=== PATIENT | male | born 1950 | race Caucasian/White ===

== ENCOUNTER 2018-04-26 22:14 | Inpatient (IN) ==
[2018-04-26 23:34] LABS: BASO# 0.02 X1000 (0.0-0.2); BASO% 0.2 % (0.0-0.8); EOS# 0.02 X1000 (0.0-0.7); EOS% 0.2 % (0.0-10.0); HEMATOCRIT 39.9 % (42.0-52.0); HEMOGLOBIN 12.6 g/dL (14.0-18.0); LYMPH# 1.14 X1000 (1.2-3.4); LYMPH% 10.7 % (20.5-51.1); MCH 32.4 PG (27-31); MCHC 31.6 g/dL (33-37); MCV 102.6 FL (81-99); MONO# 0.38 X1000 (0.11-0.59); MONO% 3.6 % (1.7-9.3); MPV 10.5 FL (7.4-10.4); NEUT# 9.11 X1000 (1.4-6.5); NEUT% 85.3 % (42.2-75.2); PLT 178 X1000 (130-400); RBC 3.89 XMIL (4.7-6.1); RDW 12.6 % (11.5-14.5); WBC 10.67 X1000 (4.8-10.8)
[2018-04-26] MEDS ORDERED: NS 1,000 ML IV ONE (23:37)
[2018-04-26 23:43] LABS: AGAP 10; ALB/GLOB RATIO 2.2; ALBUMIN 4.1 g/dL (3.5-5.0); ALKALINE PHOSPHATASE 70 U/L (32-122); BUN 37 mg/dL (8-22); CALCIUM 8.8 mg/dL (8.8-10.2); CHLORIDE 105 mmol/L (98-107); COSMO 289; CREATININE 0.8 mg/dL (0.7-1.2); ESTIMATED GFR > 60; GLUCOSE 146 mg/dL (70-104); GOT 17 U/L (10-34); GPT 17 U/L (10-44); POTASSIUM 4.6 mmol/L (3.5-5.1); SODIUM 139 mmol/L (136-145); TCO2 24 mmol/L (25-35)
[2018-04-26] MEDS ORDERED: PROTONIX IV ONE (23:45)
[2018-04-26] MEDS ORDERED: SODIUM CHLORIDE 0.9% INJ ONE (23:45)
--- NOTE | 2018-04-26 23:52 | PROVIDER DOCUMENTATION ---
This chart was entered by Pavel Carballo Scribe, acting as scribe for Geovany Ye MD. HPI-Abdominal Pain/GI Problem - General Chief Complaint: GI Bleed Stated Complaint: BROKE OUT IN COLD SWEAT 2 HRS AGO Time Seen by Provider: 04/26/18 22:40 Source: patient Allergies/Adverse Reactions: Patient Allergies Allergy/AdvReac Type Severity Reaction Status Date / Time metronidazole [From Flagyl] AdvReac RASH Verified 01/18/17 03:58 Home Medications: Home Medication List Medication Instructions Recorded Confirmed Last Taken Type Aspirin [Aspir-Low] 81 mg PO DAILY 01/18/17 01/18/17 01/17/17 08:00 History Hydrochlorothiazide 12.5 mg PO DAILY 01/18/17 01/18/17 01/17/17 08:00 History LOVAstatin [Mevacor] 20 mg PO DAILY 01/18/17 01/18/17 01/17/17 08:00 History Metformin E.r. [Glucophage Xr] 750 mg PO DAILY 01/18/17 01/18/17 01/17/17 20:00 History - History of Present Illness-ABD Nature of Presenting Problems: Pt is a 67 y/o M presents to the ED with black stool. He says he woke up this morning a noticed black stool for the first time ever. He says after dinner he reports some nausea and went to the bath room a seen black stool again. In the process pt reports a near syncope episode and he thinks he hit his head. He also reports right after eating watching TV broke into a cold sweat. He denies abdominal pain. Quality of Pain: reports: none Onset/Duration: reports: this morning Timing: reports: still present Activities at Onset: reports: none Associated Symptoms: reports: nausea. denies: dizziness, fever/chills, shortness of breath, vomiting, weakness Last BM: this evening Dark Stools Present?: reports: black Rectal Bleeding: reports: none Review of Systems - Adult - REVIEW OF SYSTEMS - ADULT Constitutional: denies: chills, fever Eyes: reports: no symptoms reported Ears, Nose, Mouth & Throat: reports: no symptoms reported Cardiovascular: reports: no symptoms reported Respiratory: denies: cough, shortness of breath, wheezing Gastrointestinal: reports: nausea, other (black stool). denies: abdominal pain , diarrhea, vomiting Genitourinary: denies: dysuria, flank pain Musculoskeletal: reports: bone pain. denies: back pain, neck pain Integumentary: reports: no symptoms reported Neurological: denies: dizziness/vertigo, headache/migraines Psychiatric: reports: no symptoms reported Endocrine: reports: no symptoms reported Hematologic/Lymphatic: reports: no symptoms reported Allergic/Immunologic: reports: no symptoms reported All Other Systems: Reviewed and Negative Past History - Adult - PAST MEDICAL HISTORY-ADULT Review of Records: reports: Old Records Reviewed, Nursing Assessment Review, Medications Reviewed Major Childhood Illnesses: reports: denies history Cardiovascular: reports: HTN Respiratory: reports: denies history Gastrointestinal: reports: denies history Obstetrical/Gynecological: reports: denies history Genitourinary: reports: kidney stones, other (BPH) Musculoskeletal: reports: denies history Neurological: reports: denies history Psychiatric: reports: denies history Endocrine/Immune: reports: Diabetes Other Conditions: reports: denies history - PRIOR SURGERIES/PROCEDURES Surgical/Procedure History: reports: other (lithotripsy) - IMMUNIZATION STATUS Childhood Immunizations: See Nurse Assessment Flu Vaccine: See Nurse Assessment - FAMILY HISTORY Family History: reviewed, not pertinent - SOCIAL HISTORY Smoking: non-smoker Living Situation: family Physical Exam-General - PHYSICAL EXAM-ADULT Initial Vital Signs Reviewed: Yes - CONSTITUTIONAL General Appearance: appears well, alert, no apparent distress - EYES Eyes: PERRL/EOMI, pink conjunctivae - HEAD, EARS, NOSE, MOUTH & THROAT HENMT: moist mucous membranes, normal ENT inspection - NECK Neck: non-tender, full range of motion, supple, normal inspection - RESPIRATORY Respiratory: lungs clear, normal breath sounds, no pleuratic chest pain, no respiratory distress, no accessory muscle use - CARDIOVASCULAR Cardiovascular: normal peripheral pulses, regular rate, rhythm - GASTROINTESTINAL (ABDOMEN) Abdominal Exam: normal bowel sounds, non tender, soft - GENITOURINARY Rectal Exam: black stool. negative: blood streaked stool, hemorrhoids - MUSCULOSKELETAL Back Exam: no CVA tenderness, no vertebral tenderness Extremity: normal range of motion, non-tender, normal gait, normal inspection - SKIN Integumentary: normal color, normal turgor, warm/dry - NEUROLOGIC Neurologic: grossly normal, no motor/sensory deficits - PSYCHIATRIC Psych/Mental Status: normal mood/affect, normal thought content, normal thought process, oriented x 3 Progress - PLAN OF CARE/RESULTS Progress/Plan/Lab Results: Vital Signs - 8 hr 04/26/18 22:32 04/26/18 22:58 04/26/18 22:59 Temperature 98.4 F Pulse Rate Respiratory Rate Blood Pressure 98/66 O2 Sat by Pulse Oximetry 95 96 04/26/18 23:00 04/26/18 23:01 04/26/18 23:10 Temperature Pulse Rate 84 81 81 Respiratory Rate 17 16 15 Blood Pressure 105/68 O2 Sat by Pulse Oximetry 95 96 95 Orders Category Date Time Status CBC WITH ELECTRONIC DIFF [HEME] Stat Lab 04/26/18 23:12 Results CMP [COMPREHENSIVE METABOLIC PANEL] [CHEM] Stat Lab 04/26/18 23:12 Received EKG [EKG] Stat Ther 04/26/18 22:59 Ordered A/P: Gi bleeding, black tarry stools for 2 days. H7H stable, hypotensive. Started IV fluids and protonix. Will admit for observation and gastro consult. Result Diagrams: 04/26/18 23:12 04/26/18 23:12 - EKG 1 Time of EKG reading by physician:: 23:01 EKG Read and Signed by:: Geovany Ye EKG Interpretation (*Must complete 3 of following elements*): Abnormal Rate: 81 Rhythm: NSR Comments: inferior infarct, age undetermined - CONSULTS/PCP/HOSPITALIST Notification #1 *Consult/PCP/Hospitalist*: Hospitalist- Dr Barriga Time Discussed: 23:43 Reason/Comments: admission Consult Disposition: Admit (accepts) Departure - Departure Date of Disposition Decision: 04/26/18 Time of Disposition Decision: 23:51 DIAGNOSIS: GI bleeding Disposition: ADMITTED INPATIENT 09 Certified Medical Emergency: Emergent Condition: Stable Additional Freetext Instructions: We have examined and treated you today on an emergency basis only. This was not a substitute for, or an effort to provide, complete medical care. In most cases, you must let your doctor check you again. Tell your doctor about any new or lasting problems. We cannot recognize and treat all injuries or illnesses in one Emergency Department visit. If you had special tests, such as X-rays or CT scans, will be reviewed by radiologist and will call you if there are any new suggestions Follow up with primary care provider in 1 to 2 days if no improvement. If you do not have a primary care provider, you need to choose one as soon as possible. Take medicines as prescribed. Monitor for any side effects or adverse events from medications. If any side effect, adverse event or rash develops, or if you suspect any other adverse reaction to the medication, then discontinue the medication immediately and contact clinic /PCP or go to the nearest ER. Narcotic meds / sedative meds instruction - patent advised not to drive, operate any machinery or go into water after taking meds as it may impair mental ability to react to the situation in an appropriate manner. Continue other current medicines. Follow up with PCP within 24-48 hours, or sooner if symptoms worsen or fail to improve. Patient / guardian verbalizes understanding of treatment plan, medication, and side effects and agrees with treatment plan. Patient leaves ER in stable condition and ambulatory state. Return to ER as needed. Discharge instructions reviewed verbally and given to patient in written form. Follow up with primary care provider. Referrals and Follow-Ups: Leora Mcmahon CRNP [Primary Care Provider] - - Critical Care Note This patient required my direct & personal management of CC.: Yes Total Time (mins): 36 Critical Care Statement: This patient required my direct personal management to treat or rule out processes, the absence of which, could potentiallly result in sudden, clinically significant life or limb threatening deterioration. Attestation - Physician/ STU Attestation Patient care was provided by Advanced Practice Provider:: No The physician spent face to face time with patient:: Yes Advanced Practice Provider documentation review:: Supervising physician onsite and consulted in the evaluation and care of this patient. The physician did have a face to face encounter with the patient. This chart was documented by the indicated scribe, (Pavel Carballo Scribe) and accurately reflects the services I performed and decisions made by me, Geovany Ye MD, as attested by the provider's signature.
[2018-04-27] MEDS ORDERED: NS 500 ML IV ONE ×2 (00:04→04:59)
[2018-04-27] MEDS ORDERED: ZOFRAN IV PRN (00:04)
[2018-04-27 00:07] LABS: INR 0.97; PROTIME 13.6 Seconds (11.0-16.0)
[2018-04-27 00:08] LABS: PTT 26.7 Seconds (22.3-41.8)
[2018-04-27] MEDS ORDERED: SODIUM CHLORIDE 0.9% INJ SCH (00:15)
[2018-04-27 00:28] LABS: HEMOGLOBIN A1C 5.7 % (4.8-6.0)
[2018-04-27 00:43] LABS: IRON SATURATION 55 %; TIBC 273 ug/dL; TOTAL IRON 151 ug/dL (53-167); UNBOUND IRON 122 ug/dL (112-346)
[2018-04-27 00:47] LABS: FERRITIN 103 ng/mL (30-400)
[2018-04-27] MEDS: NS 1,000 ML IV SCH ×3 (02:00→22:20)
--- NOTE | 2018-04-27 03:40 | HISTORY AND PHYSICAL ---
PRIMARY CARE PROVIDER: RAUL Plummer CHIEF COMPLAINT: Black stool. HISTORY OF PRESENT ILLNESS: This is a 67-year-old male who comes into the emergency room today with a complaint of dark, black, tarry stools. He states he woke up this morning and noticed black stool for the first time ever. He does have a history of peptic ulcer disease in the past apparently. Also, hypertension, BPH, kidney stones, hyperlipidemia and diabetes mellitus type 2. He stated that after dinner he had some nausea, no vomiting, no hematemesis. He went to the bathroom, felt somewhat dizzy and had a near syncopal episode. He did not pass out. He felt as if he were going to. He broke into a cold sweat, had 1 more stool that was again black and tarry in nature and came to the emergency room. He denies any abdominal pain. He states that there was no abdominal pain with any of the episodes. He denied any dizziness or fever. He did state that he had a chill after a cold sweat. Denied any shortness of breath or weakness as well. An occult stool was obtained which was positive. The patient will be admitted inpatient for further evaluation and treatment. PAST MEDICAL HISTORY: Coronary artery disease status post myocardial infarction. For others, see HPI. PREVIOUS SURGICAL HISTORY: Lithotripsy, cardiac stenting, tonsillectomy, TURP. SOCIAL HISTORY: He is a assembly mechanic. No tobacco, alcohol or illicit drugs. Lives with his . FAMILY HISTORY: Father had coronary artery disease. ALLERGIES: Metronidazole. HOME MEDICATIONS: 1. Aspirin 81 mg p.o. daily. 2. Metformin 750 mg p.o. b.i.d. 3. Atorvastatin 40 mg p.o. daily. 4. Losartan/potassium 12.5 mg p.o. daily. 5. Metoprolol 25 mg p.o. b.i.d. REVIEW OF SYSTEMS: Fourteen point review of systems conducted with the patient. Pertinent positives listed above in the HPI. All other systems reviewed and found to be negative. PHYSICAL EXAMINATION: VITAL SIGNS: Temperature 98.4, pulse 86, respirations 16, blood pressure 101/71 , oxygen saturation 97% on room air. GENERAL: A 67-year-old male answered all questions appropriately. Alert and oriented x3, lying on the ER stretcher, at bedside. HEENT: Head is atraumatic, normocephalic. Pupils equal, round, reactive to light. Extraocular eye movement intact. Sclerae are anicteric. Conjunctivae are pink, warm. Mucosa is mildly dry. NECK: Supple. No JVD. No thyromegaly. Trachea is midline. No cervical lymphadenopathy. CARDIAC: S1, S2 appreciated. No murmurs, gallops, rubs. LUNGS: Clear to auscultation bilaterally. No rhonchi, wheezes, rales. Symmetric rise and fall with respirations. ABDOMEN: Soft, nondistended, nontender. Bowel sounds hypoactive in all 4 quadrants. No pulsatile mass. No organomegaly. EXTREMITIES: No clubbing, cyanosis, or edema. GENITOURINARY: No bladder distention. Patient voids, otherwise deferred. NEUROLOGICAL: Alert and oriented x3. No focal or motor deficits noted. Otherwise nonfocal examination. DIAGNOSTIC DATA: Occult stool was positive. LABORATORY DATA: WBC 10.67, hemoglobin 12.6, hematocrit 39.9, platelet count 178,000. PT and INR within normal limits. Sodium 139, potassium 4.16, chloride 105, carbon dioxide 24, BUN 37, creatinine 0.8, glucose 146, ASSESSMENT AND PLAN: 1. Gastrointestinal bleed, appears to be upper gastrointestinal bleed. Consult Dr. Garcia. Protonix 40 mg IV q.12 hours. Patient has a history of peptic ulcer disease , possibly could be related to that. Patient will likely need endoscopy tomorrow morning. He will be n.p.o. 2. Fluid volume depletion. The patient is prerenal in his labs. Will give 1 L bolus, continue normal saline at 80 mL hour. 3. Nausea. Zofran as needed 4 mg IV q.4 hours p.r.n. 4. Diabetes mellitus type 2. Hold metformin. Check hemoglobin A1c. Fingerstick blood sugars q.a.c. and h.s. with sliding scale insulin. 5. Hyperlipidemia. Continue statin. 6. Hypertension, currently hypotensive. Will hold his losartan/potassium at this time, also hold 81 mg aspirin. Further recommendations per the patient's clinical course. Dictated by RAUL Valdez for Vernon Barriga MD cc: RAUL Plummer CRNP agree with above. the following is my own face to face assessment. Patient with sudden onset melena, nausea, and pre-syncope. suspect upper gi bleed. abdominal exam benign without tenderness although bowel sounds are somewhat decreased. will place on IV protonix, keep NPO, and consult GI for likely endoscopy. MTDD
[2018-04-27 05:15] LABS: BASO# 0.03 X1000 (0.0-0.2); BASO% 0.5 % (0.0-0.8); EOS# 0.05 X1000 (0.0-0.7); EOS% 0.8 % (0.0-10.0); HEMATOCRIT 34.2 % (42.0-52.0); HEMOGLOBIN 10.8 g/dL (14.0-18.0); LYMPH# 2.53 X1000 (1.2-3.4); MCH 32.4 PG (27-31); MCHC 31.6 g/dL (33-37); MCV 102.7 FL (81-99); MPV 10.2 FL (7.4-10.4); NEUT# 3.64 X1000 (1.4-6.5); NEUT% 54.7 % (42.2-75.2); PLT 149 X1000 (130-400); RBC 3.33 XMIL (4.7-6.1); RDW 12.5 % (11.5-14.5); WBC 6.65 X1000 (4.8-10.8)
[2018-04-27] MEDS: HUMALOG SUBQ SCH ×4 (07:00→22:16)
--- NOTE | 2018-04-27 07:28 | EKG Report ---
Test Performed on : 04/27/2018 07:12:06 AM Test Reason : chest pain Blood Pressure : / mmHG Vent. Rate : 086 BPM Atrial Rate : 086 BPM P-R Int : 240 ms QRS Dur : 092 ms QT Int : 366 ms P-R-T Axes : 045 -20 001 degrees QTc Int : 437 ms Sinus rhythm. with 1st degree AV block. Inferior infarct (cited on or before 18-JAN-2017) Abnormal ECG When compared with ECG of 26-APR-2018 23:01, (Unconfirmed) [place] interval has increased Confirmed by Shine Johnson MD ([id number]) on 04/28/2018 6:35:22 AM
--- NOTE | 2018-04-27 07:30 | EKG Report ---
Test Performed on : 04/26/2018 11:01:05 PM Test Reason : syncopal episode Blood Pressure : / mmHG Vent. Rate : 081 BPM Atrial Rate : 081 BPM P-R Int : 204 ms QRS Dur : 092 ms QT Int : 354 ms P-R-T Axes : 056 -26 -02 degrees QTc Int : 411 ms Normal sinus rhythm. Inferior infarct (cited on or before 18-JAN-2017) Abnormal ECG When compared with ECG of 18-JAN-2017 04:27, Sinus rhythm. is no longer with 2nd degree AV block (Mobitz II). ST no longer elevated in Inferior leads Unconfirmed Result
[2018-04-27] MEDS ORDERED: LOPRESSOR PO SCH (09:00)
[2018-04-27] MEDS ORDERED: DIPRIVAN 1% ONE (09:36)
--- NOTE | 2018-04-27 09:43 | GASTROENTEROLOGY CONSULTATION ---
DATE: 04/27/2018 REASON FOR CONSULTATION: Gastrointestinal bleeding, melena. HISTORY OF PRESENT ILLNESS: Mr. Fish Damon is a 67-year-old gentleman with a history of hypertension, hyperlipidemia, noninsulin-dependent diabetes, CAD status post PA and stents in January 2017, who presents with 1 day of black stools. He reports having an episode of black stools yesterday and last evening with associated nausea, lightheadedness, and presyncopal episode while in the bathroom. He also reports breaking out in cold sweats. He denies any shortness of breath, chest pain, abdominal pain, bright red blood per rectum, or unexplained weight loss. He takes a baby aspirin daily. No NSAIDs. No other blood thinners. He denies history of peptic ulcer disease. He also has never had an endoscopy in the past. He had a remote colonoscopy done 15-20 years ago. No first degree relatives with colon cancer. He does have a maternal uncle who had colon cancer. REVIEW OF SYSTEMS: As per HPI, otherwise 12-point review of systems negative. PAST MEDICAL HISTORY: 1. Hypertension. 2. Hyperlipidemia. 3. Noninsulin-dependent diabetes type 2. 4. Kidney stones. 5. CAD status post PA and stents. PAST SURGICAL HISTORY: 1. TURP. 2. Tonsillectomy. 3. Lithotripsy. SOCIAL HISTORY: The patient denies smoking, alcohol or drug use. He is a mechanic driver, lives with his . FAMILY HISTORY: Maternal uncle with history of colorectal cancer. Father had coronary artery disease. ALLERGIES: Metronidazole. HOME MEDICATIONS: 1. Aspirin. 2. Metformin. 3. Atorvastatin. 4. Losartan. 5. Potassium. 6. Metoprolol. PHYSICAL EXAMINATION: Vital Signs: Temperature 98.4, heart rate 86, respiratory rate 20, blood pressure 101/66, 95% on room air. General: The patient is awake, alert and oriented in no acute distress. Well nourished and well developed. HEENT: Sclerae anicteric. Moist mucous membranes. Neck: No JVD. No lymphadenopathy. Cardiac: Regular rate and rhythm. No murmurs, rubs or gallops. Pulmonary: Clear to auscultation bilaterally. No wheezing or crackles. Abdomen: Soft, nontender, nondistended. Normoactive bowel sounds. No rebound or guarding. No ascites. Extremities: No clubbing, cyanosis or edema. Neurologic: Cranial nerves II- XII grossly intact, nonfocal. Skin: No jaundice. Warm and well perfused. LABORATORY DATA: Sodium 139, potassium 4.6, chloride 105, bicarb 24, BUN 37, creatinine 0.8, glucose 146. White count 10.6, hemoglobin 10.8 from 12.6 on admission, platelets 178,000. Albumin 4.1, total bilirubin 0.7, AST 17, ALT 17, alkaline phosphatase 70, INR 0.97, B12 low at 192, folate 11, ferritin 103, iron 151. ASSESSMENT AND PLAN: Mr. Fish Damon is a 67-year-old gentleman with a history notable for coronary artery disease on aspirin, who presents with 1 day of melena and anemia with a hemoglobin dropping to 10.8 from 12.6, concerning for upper gastrointestinal bleeding. He has an elevated BUN and creatinine ratio which also supports upper gastrointestinal bleed. His exam is unremarkable. He did have some symptoms associated with his bleeding including presyncopal symptoms and sweats. No nonsteroidal anti-inflammatories. No history of alcohol liver disease. He is currently n.p.o. on proton pump inhibitor IV b.i.d. with plans for upper gastrointestinal endoscopy today. I have discussed the risks and benefits of esophagogastroduodenoscopy. #Melena/UGIB - continue PPI IV BID - NPO - Will plan for esophagogastroduodenoscopy this morning #Anemia: - continue to trend his H and H every 6-8 hours, transfuse as needed to maintain a hemoglobin above 7. - hold BP medications as well as aspirin for now. - maintain two large bore IVs - continue fluid resuscitation. - further recommendations post procedure #CAD: no chest pain Thank you for this consult. Will follow with you. Please call with any questions or concerns. SONAM
[2018-04-27] MEDS ORDERED: XYLOCAINE-MPF 2% ONE (09:59)
[2018-04-27] MEDS ORDERED: CYANOCOBALAMIN IM ONE (10:34)
--- NOTE | 2018-04-27 10:35 | OPERATIVE NOTE ---
PROCEDURE DATE : 04/27/2018 PROCEDURE PERFORMED: Upper gastrointestinal endoscopy. PROVIDER: Kurt Saunders MD INDICATION: Melena, GI bleeding. MEDICATIONS: Monitored anesthesia care. DESCRIPTION OF PROCEDURE: Prior to procedure, a history and physical was performed. The patient's medications and allergies were reviewed. The patient's tolerance of previous anesthesia was also reviewed. The risks and benefits of the procedure, sedation options and risks were discussed with the patient. All questions were answered, and informed consent was obtained. After reviewing the risks and benefits, the patient was deemed in satisfactory condition to undergo the procedure. The endoscope was passed under direct visualization. Throughout the procedure, the patient's blood pressure, pulse and oxygen saturations were monitored continuously. The endoscope was introduced through the mouth and advanced to the second portion of the duodenum. The upper GI endoscopy was performed without difficulty. The patient tolerated the procedure well. COMPLICATIONS: No immediate complications. ESTIMATED BLOOD LOSS: Minimal. FINDINGS: Normal esophagus. In the body of the gastric of the stomach, there were copious amounts of retained gastric contents as well as blood clots. The antrum was normal. The first and second portions of the duodenum were also normal. Retroflexion in the stomach was negative for gastric varices. IMPRESSION: 1. Normal esophagus. 2. Retained gastric contents. 3. Blood clots in the gastric body. 4. Normal duodenum. RECOMMENDATIONS: - Start diabetic clear liquid diet. - Continue IV PPI twice daily. - Trend hemoglobin and hematocrit every 6 to 8 hours. Transfuse as needed to maintain hemoglobin between 7 and 8. - Maintain 2 large bore IVs - Holding blood thinners - NPO after midnight. - Plan for repeat endoscopy tomorrow. We will follow with you. Please call with any questions or concerns. [facility]
--- NOTE | 2018-04-27 10:51 | Diag Imaging Result Doc PS360 ---
EXAM: CHEST-PORTABLE HISTORY: dyspnea TECHNIQUE: Chest single view COMPARISON: None. FINDINGS: The lungs are well expanded. The heart is not enlarged. The vessels are not distended. There are no infiltrates. No effusion identified. There are old left rib fractures. IMPRESSION: Negative exam. Electronically signed by Franki Salgado 04/27/2018 10:49 AM
[2018-04-27] MEDS: PROTONIX IV SCH ×2 (12:20→22:22)
[2018-04-27] MEDS: LIPITOR PO SCH (12:21)
[2018-04-27 14:02] LABS: BASO# 0.03 X1000 (0.0-0.2); BASO% 0.4 % (0.0-0.8); EOS# 0.05 X1000 (0.0-0.7); EOS% 0.7 % (0.0-10.0); HEMATOCRIT 34.2 % (42.0-52.0); HEMOGLOBIN 10.6 g/dL (14.0-18.0); LYMPH# 2.53 X1000 (1.2-3.4); LYMPH% 35.7 % (20.5-51.1); MCH 32.1 PG (27-31); MCV 103.6 FL (81-99); MONO# 0.34 X1000 (0.11-0.59); MONO% 4.8 % (1.7-9.3); MPV 10.6 FL (7.4-10.4); NEUT# 4.13 X1000 (1.4-6.5); NEUT% 58.4 % (42.2-75.2); PLT 152 X1000 (130-400); RDW 12.6 % (11.5-14.5); WBC 7.08 X1000 (4.8-10.8)
[2018-04-27] MEDS ORDERED: TYLENOL PO PRN (15:57)
--- NOTE | 2018-04-27 16:31 | PROGRESS NOTE ---
DATE: 04/27/2018 SUBJECTIVE: The patient has no major complaints. Dr. Barriga saw the patient last night. He has likely an upper GI bleed. Describes melena. His hemoglobin and hematocrit have dropped a bit but stabilized over the last 6 hours. PLAN: Plan will be to scope again tomorrow. He is on Protonix. We will continue to follow. DISPOSITION: Pending clinical status. cc: Keith Lynch MD
--- NOTE | 2018-04-27 18:18 | ECHO REPORT ---
ORDER DATE: 04/27/2018 INDICATION: A 67-year-old male with atrioventricular block, hypertension, and diabetes. M-MODE MEASUREMENTS: Left ventricle end diastole: 6.1. Left ventricle end systole: 3.7. Posterior wall: 1.0. Interventricular septum: 1.0. Left atrium: 3.8. Aortic root: 3.9. SUMMARY OF 2-DIMENSIONAL IMAGIN. Left ventricular function is normal. Ejection fraction of 65%. Ventricular chamber is moderately enlarged. There is no wall motion abnormality. 2. The aortic valve is normal. Color flow mapping unremarkable. 3. The mitral valve is normal. Color flow mapping unremarkable. 4. Pulsed wave Doppler of mitral inflow is normal. 5. Tissue Doppler of septal and lateral mitral annulus averages 10 cm. There is no diastolic dysfunction. 6. Tricuspid valve shows trace of regurgitation. Inferior vena cava is not well visualized. 7. The pulmonary pressure is probably normal at 24 to 29 mmHg. The pulmonic valve is normal. Color flow mapping unremarkable. 8. There is no pericardial effusion, mass, and no thrombus. 9. The rest of the chambers appear to be normal. 10.The left atrium did not appear to be dilated. cc: MD Keith Giles MD
[2018-04-27 19:13] LABS: BASO# 0.03 X1000 (0.0-0.2); BASO% 0.5 % (0.0-0.8); EOS# 0.09 X1000 (0.0-0.7); EOS% 1.6 % (0.0-10.0); HEMATOCRIT 34.2 % (42.0-52.0); HEMOGLOBIN 10.7 g/dL (14.0-18.0); LYMPH# 2.51 X1000 (1.2-3.4); LYMPH% 44.3 % (20.5-51.1); MCH 32.5 PG (27-31); MCHC 31.3 g/dL (33-37); MONO% 5.3 % (1.7-9.3); MPV 10.3 FL (7.4-10.4); NEUT# 2.73 X1000 (1.4-6.5); NEUT% 48.3 % (42.2-75.2); PLT 154 X1000 (130-400); RBC 3.29 XMIL (4.7-6.1); RDW 12.6 % (11.5-14.5); WBC 5.66 X1000 (4.8-10.8)
[2018-04-28 01:01] LABS: BASO# 0.03 X1000 (0.0-0.2); BASO% 0.5 % (0.0-0.8); EOS# 0.11 X1000 (0.0-0.7); EOS% 1.9 % (0.0-10.0); HEMATOCRIT 32.4 % (42.0-52.0); HEMOGLOBIN 10.1 g/dL (14.0-18.0); LYMPH# 2.21 X1000 (1.2-3.4); MCH 32.3 PG (27-31); MCHC 31.2 g/dL (33-37); MCV 103.5 FL (81-99); MONO# 0.32 X1000 (0.11-0.59); MONO% 5.7 % (1.7-9.3); MPV 9.8 FL (7.4-10.4); NEUT# 2.99 X1000 (1.4-6.5); NEUT% 52.9 % (42.2-75.2); PLT 133 X1000 (130-400); RBC 3.13 XMIL (4.7-6.1); RDW 12.4 % (11.5-14.5); WBC 5.66 X1000 (4.8-10.8)
[2018-04-28] MEDS ORDERED: DIPRIVAN 1% ONE ×2 (06:55→07:03)
[2018-04-28] MEDS ORDERED: XYLOCAINE-MPF 2% ONE (06:55)
[2018-04-28] MEDS ORDERED: ROBINUL ONE (06:55)
[2018-04-28] MEDS: HUMALOG SUBQ SCH ×2 (07:34→10:38)
[2018-04-28] MEDS ORDERED: EPINEPHRINE SYRINGE ONE (07:35)
[2018-04-28 08:08] VITALS: BP 123/73
--- NOTE | 2018-04-28 08:08 | OPERATIVE NOTE ---
PROCEDURE DATE : PROCEDURE PERFORMED: Upper gastrointestinal endoscopy. PROVIDER: Kurt Saunders MD INDICATIONS: Upper GI bleeding, melena, anemia. MEDICATIONS: Monitored anesthesia care. DESCRIPTION OF PROCEDURE: Prior to procedure, history and physical was performed. The patient's medications and allergies were reviewed. The patient's tolerance of previous anesthesia was also reviewed. The risks and benefits of the procedure and sedation options and risks were discussed with the patient. All questions were answered, and informed consent was obtained. After reviewing the risks and benefits, the patient was deemed in satisfactory condition to undergo the procedure. The endoscope was passed under direct visualization. Throughout the procedure, the patient's blood pressure, pulse and oxygen saturations were monitored continuously. The endoscope was introduced through the mouth and advanced to the second portion of the duodenum. The upper GI endoscopy was performed without difficulty. The patient tolerated the procedure well. COMPLICATIONS: No immediate complications. ESTIMATED BLOOD LOSS: Minimal. FINDINGS: Esophagus: - There was a small hiatal hernia. - Regular Z-line at 40cm from incisors Stomach: - A 1-cm, non-bleeding cratered gastric ulcer was found in the gastric body with a small pigmented spot at the base. Random gastric biopsies were obtained with cold forceps to rule out Helicobacter pylori. Biopsies were also obtained from the margins of the gastric ulcer to rule out malignancy. There was mild oozing from the ulcer after biopsy requiring treatment with 2-mL of submucosal epinephrine ([id number]) and cauterization with monopolar probe. Retroflexion in the stomach was otherwise unrevealing Duodenum: - The bulb and second portion of duodenum were normal. IMPRESSION: 1. Small hiatal hernia. 2. Gastric ulcer. RECOMMENDATIONS: - Recommend transitioning IV PPI to p.o. twice daily and continue for 3 months. - Resume diabetic diet. - Follow-up pathology results - The patient will need repeat endoscopy in 8-12 weeks to check for ulcer healing. - Avoid NSAIDs. - Resume aspirin upon discharge. The patient is okay for discharge from a GI perspective. He should follow up in our clinic in 2-4 weeks to scheduled an upper GI endoscopy. Please call with any questions or concerns. MTDD
[2018-04-28] MEDS ORDERED: PROTONIX PO SCH (09:00)
[2018-04-28 09:08] LABS: BASO# 0.02 X1000 (0.0-0.2); BASO% 0.4 % (0.0-0.8); EOS# 0.09 X1000 (0.0-0.7); EOS% 1.6 % (0.0-10.0); HEMATOCRIT 36.4 % (42.0-52.0); HEMOGLOBIN 11.2 g/dL (14.0-18.0); LYMPH# 1.22 X1000 (1.2-3.4); LYMPH% 22.3 % (20.5-51.1); MCH 32.2 PG (27-31); MCHC 30.8 g/dL (33-37); MCV 104.6 FL (81-99); MONO# 0.19 X1000 (0.11-0.59); MONO% 3.5 % (1.7-9.3); MPV 10.2 FL (7.4-10.4); NEUT# 3.94 X1000 (1.4-6.5); NEUT% 72.2 % (42.2-75.2); PLT 149 X1000 (130-400); RBC 3.48 XMIL (4.7-6.1); RDW 12.5 % (11.5-14.5); WBC 5.46 X1000 (4.8-10.8)
[2018-04-28 10:09] LABS: AGAP 7; BUN 17 mg/dL (8-22); CALCIUM 8.2 mg/dL (8.8-10.2); CHLORIDE 110 mmol/L (98-107); COSMO 289; CREATININE 0.8 mg/dL (0.7-1.2); ESTIMATED GFR > 60; GLUCOSE 148 mg/dL (70-104); POTASSIUM 4.3 mmol/L (3.5-5.1); SODIUM 143 mmol/L (136-145); TCO2 26 mmol/L (25-35)
[2018-04-28] MEDS: LIPITOR PO SCH (10:34)
[2018-04-28 12:31] LABS: BASO# 0.02 X1000 (0.0-0.2); BASO% 0.2 % (0.0-0.8); EOS# 0.07 X1000 (0.0-0.7); EOS% 0.8 % (0.0-10.0); HEMATOCRIT 39.3 % (42.0-52.0); HEMOGLOBIN 12.3 g/dL (14.0-18.0); LYMPH# 3.29 X1000 (1.2-3.4); LYMPH% 37.6 % (20.5-51.1); MCH 32.5 PG (27-31); MCHC 31.3 g/dL (33-37); MONO% 4.6 % (1.7-9.3); MPV 10.6 FL (7.4-10.4); NEUT# 4.96 X1000 (1.4-6.5); NEUT% 56.8 % (42.2-75.2); PLT 181 X1000 (130-400); RBC 3.78 XMIL (4.7-6.1); RDW 12.6 % (11.5-14.5); WBC 8.74 X1000 (4.8-10.8)
[2018-04-28] MEDS: NS 1,000 ML IV SCH (16:00)
== END 2018-04-28 18:31 | disposition home or self-care (01) | DRG 378 ==
LOC: ED 22:14 → EDIPHOLD 04-27 02:08 → SUATTDRO 04-27 02:08 → 3N 04-27 11:14
PROVIDERS: ATTEND Internal Medicine
PROC: EN.HEAT (2018-04-28 07:30)
CPT/HCPCS: 71010; 71045; 80048; 80053; 82270; 82607; 82728; 82746; 82948; 83036; 83540; 83550; 85025; 85610; 85730; 86850; 86900; 86901; 88305; 88312; 93005; 93306; 96361; 96374; 99285; A9270; C9113; J0171; J1815; J3420; J7030; J7040; S0164; XXXXX